=== PATIENT | female | born 1945 | race Hispanic/Latino ===

== ENCOUNTER 2017-10-08 00:01 | Emergency (ER) | payer MEDICARE ==
[2017-10-08 00:17] VITALS: BP 180/136; PULSE 99; RESP 20; TEMP 98.9; O2SAT 97
== END 2017-10-08 00:19 | disposition left against medical advice (07) ==
LOC: C.ER 00:01
DX: Z02.89 Encounter for other administrative examinations (principal); R04.0 Epistaxis